=== PATIENT | female | born 1970 | race Caucasian/White ===

== ENCOUNTER 2018-04-14 06:49 | Day surgery (SDC) | payer BC ==
[~2018-04-14] VITALS: Ht 167.6 cm; Wt 82.6 kg
[~2018-04-14 06:49] MED LIST: BACTRIM DS1 TAB PO; CIPRODEX1 ML AU; CIPROFLOXACN500 MG PO; DIFLUCAN150 MG PO; EQ IBUPROFEN200 M1 PO; FERR SULFATE325 MG PO; FIORICET PO; KENALOG15 GM/TUBE EX; LIDOCAINE5 % EX; METROGEL VAG0.75 % VA; NAPROXEN500 MG PO; NIACIN500 MG PO; NYSTATIN100000 M3 TOP; ONDANSETRON4 MG OR; OXYBUTYNIN5 MG PO; PAXIL20 MG OR; PHENERGAN25 MG/TAB PO; PRAVASTATIN20 MG PO; PROAIR HFA IN; ROCEPHIN 1 GM1 GM IM; SERTRALINE100 MG PO; ZOFRAN ODT4 MG PO; ZOLOFT100 MG PO; ZPAK PO
[2018-04-14 14:31] VITALS: BP 110/73
== END 2018-04-14 10:05 | disposition home or self-care (01) | DRG 552 ==
LOC: ORM 06:49
PROVIDERS: ATTEND Anesthesiology Pain Medicine
PROC: 3E0T3BZ Introduction of Anesthetic Agent into Peripheral Nerves and Plexi, Percutaneous Approach (ICD-10-PCS; principal; 2018-04-14)
PROC: 3E0T33Z Introduction of Anti-inflammatory into Peripheral Nerves and Plexi, Percutaneous Approach (ICD-10-PCS; 2018-04-14)
PROC: BR161ZZ Fluoroscopy of Lumbar Facet Joint(s) using Low Osmolar Contrast (ICD-10-PCS; 2018-04-14)
DX: M54.5 Low back pain (principal); M12.9 Arthropathy, unspecified; M41.26 Other idiopathic scoliosis, lumbar region

== ENCOUNTER 2018-07-07 05:18 | Day surgery (SDC) | payer BC ==
[2018-07-07 09:02] VITALS: BP 136/88
== END 2018-07-07 08:10 | disposition home or self-care (01) | DRG 552 ==
LOC: ORM 05:18
PROVIDERS: ATTEND Anesthesiology Pain Medicine
PROC: 3E0T3BZ Introduction of Anesthetic Agent into Peripheral Nerves and Plexi, Percutaneous Approach (ICD-10-PCS; principal; 2018-07-07)
PROC: 3E0T33Z Introduction of Anti-inflammatory into Peripheral Nerves and Plexi, Percutaneous Approach (ICD-10-PCS; 2018-07-07)
PROC: BR161ZZ Fluoroscopy of Lumbar Facet Joint(s) using Low Osmolar Contrast (ICD-10-PCS; 2018-07-07)
DX: M54.5 Low back pain (principal); M12.9 Arthropathy, unspecified

== ENCOUNTER 2018-07-28 06:27 | Day surgery (SDC) | payer BC ==
[~2018-07-28] VITALS: Ht 167.6 cm; Wt 85.3 kg
[2018-07-28 09:53] VITALS: BP 120/79
== END 2018-07-28 09:26 | disposition home or self-care (01) | DRG 552 ==
LOC: ORM 06:27
PROVIDERS: ATTEND Anesthesiology Pain Medicine
PROC: 015B3ZZ Destruction of Lumbar Nerve, Percutaneous Approach (ICD-10-PCS; principal; 2018-07-28)
DX: M54.5 Low back pain (principal); M12.9 Arthropathy, unspecified

== ENCOUNTER 2018-09-10 19:08 | Emergency (ER) | payer BC ==
[~2018-09-10] VITALS: Ht 167.6 cm; Wt 79.2 kg
[2018-09-10 20:23] LABS: HEMATOCRIT 37.9 % (37.0-47.0); HEMOGLOBIN 12.6 g/dl (12.0-16.0); IMMATURE GRANULOCYTES 0.3 % (0.0-5.0); MEAN CELL VOLUME 92.4 fL CALC (80.0-100.0); MEAN CORPUSCULAR HGB 30.7 pG CALC (26.0-32.0); MEAN CORPUSCULAR HGB CONC 33.2 g/L CALC (32.0-36.0); NEUT# 5.9 thou/uL (2.00-7.15); RED BLOOD COUNT 4.1 mill/uL (4.20-5.60); RED CELL DISTRI WIDTH 13.9 % (11.5-15.5)
[2018-09-10 20:29] LABS: ALBUMIN 4.2 g/dL (3.2-5.0); ALKALINE PHOSPHATASE 68 u/l (38-126); ANION GAP 15 (6-22 (CALC)); BILIRUBIN, TOTAL 0.5 mg/dL (0.0-1.4); BUN 10 mg/dL (7-17); BUN/CREATININE RATIO 12 (12-20 (CALC)); CARBON DIOXIDE 24 mmol/l (22-30); CHLORIDE 103 mmol/l (95-108); CREATININE 0.8 mg/dL (0.5-1.0); GFR > 60 ML/MIN (>=60 (CALC)); GFR FOR AFR.AMER. > 60 ML/MIN (>=60 (CALC)); LIPASE 194 u/l (23-300); POTASSIUM 3.9 mmol/l (3.5-5.1); SGOT/AST 23 u/l (14-36); SODIUM 138 mmol/l (137-146); TOTAL PROTEIN 7.1 g/dL (6.3-8.2)
[2018-09-10 20:43] LABS: URINE BILIRUBIN - DIPSTICK NEGATIVE (NEGATIVE); URINE BLOOD DIPSTICK LARGE (NEGATIVE); URINE COLOR YELLOW; URINE GLUCOSE - DIPSTICK NEGATIVE (NEGATIVE); URINE KETONE NEGATIVE (NEGATIVE); URINE NITRITE - DIPSTICK NEGATIVE (Negative); URINE PH 6.5 (4.5-8.0); URINE PROTEIN - DIPSTICK NEGATIVE (NEG-TRACE); URINE SPECIFIC GRAVITY <=1.005; URINE UROBILINOGEN - DIPSTICK 0.2 E.U./dL (0.2)
[2018-09-10 21:00] LABS: URINE LEUK ESTERASE MODERATE (NEGATIVE)
[2018-09-10 21:13] LABS: URINE BACTERIA RARE hpf; URINE RBC TNTC RBC/hpf (0-5); URINE SQUAMOUS EPITHELIAL CELL FEW EPI/hpf (0-FEW); URINE WBC 20-50 WBC/hpf (0-5)
[2018-09-10] MEDS ORDERED: PYRIDIUM200 MG PO (21:19)
[2018-09-10] MEDS ORDERED: CIPROFLOXACN500 MG PO (21:19)
[2018-09-11] MEDS ORDERED: PERCOCET 5/321 COMBO PO (00:03)
[2018-09-11 00:24] VITALS: BP 118/64
== END 2018-09-11 00:23 | disposition home or self-care (01) | DRG 690 ==
LOC: ED 19:08
DX: N39.0 Urinary tract infection, site not specified (principal); N13.30 Unspecified hydronephrosis; R10.9 Unspecified abdominal pain; R31.9 Hematuria, unspecified; R33.9 Retention of urine, unspecified; B96.20 Unspecified Escherichia coli [E. coli] as the cause of diseases classified elsewhere
CPT/HCPCS: J1956; Q9967

== ENCOUNTER 2022-03-19 19:38 | Emergency (ER) | payer OTHER ==
[2022-03-19] VITALS (7 sets, daily range): BP systolic 114–136; BP diastolic 66–86
[~2022-03-19] VITALS: Ht 167.6 cm; Wt 85.0 kg
[~2022-03-19 19:38] MED LIST changes: +PERCOCET 5/321 COMBO PO; +PYRIDIUM200 MG PO
[2022-03-19 20:17] LABS: HEMATOCRIT 40.4 % (37.0-47.0); HEMOGLOBIN 13.2 g/dl (12.0-16.0); IMMATURE GRANULOCYTES 0.3 % (0.0-5.0); MEAN CORPUSCULAR HGB 29.7 pG CALC (26.0-32.0); MEAN CORPUSCULAR HGB CONC 32.7 g/dL CAL (32.0-36.0); NEUT# 3.87 thou/uL (2.00-7.15); RED BLOOD COUNT 4.44 mill/uL (4.20-5.60); RED CELL DISTRI WIDTH 14.1 % (11.5-15.5)
[2022-03-19 20:30] LABS: ALBUMIN 4.3 g/dL (3.2-5.0); ALKALINE PHOSPHATASE 94 u/l (38-126); ANION GAP 13 (6-22 (CALC)); BILIRUBIN, TOTAL 0.4 mg/dL (0.0-1.4); BUN 11 mg/dL (7-17); BUN/CREATININE RATIO 10 (12-20 (CALC)); CARBON DIOXIDE 23 mmol/l (22-30); CHLORIDE 108 mmol/l (95-108); CREATININE 1.1 mg/dL (0.5-1.0); GFR FOR AFR.AMER. > 60 ML/MIN (>=60 (CALC)); GFR OTHER RACES 52 ML/MIN (>=60 (CALC)); LIPASE 300 u/l (23-300); POTASSIUM 3.9 mmol/l (3.5-5.1); SGOT/AST 25 u/l (14-36); SODIUM 140 mmol/l (137-146); TOTAL PROTEIN 7.7 g/dL (6.3-8.2)
[2022-03-19 20:31] LABS: ACT PARTIAL THROMBO TIME 24.5 SECONDS (20.0-32.5); PROTHROMBIN TIME 10.6 SECONDS (9.0-12.5)
[2022-03-19] MEDS ORDERED: HYDROCO/APAP1 TA9 PO (22:54)
[2022-03-19] MEDS ORDERED: ZOFRAN4 MG/TAB PO (22:54)
== END 2022-03-19 23:55 | disposition home or self-care (01) | DRG 605 ==
LOC: ED 19:38
DX: S70.02XA Contusion of left hip, initial encounter (principal); S70.01XA Contusion of right hip, initial encounter; S20.212A Contusion of left front wall of thorax, initial encounter; S83.92XA Sprain of unspecified site of left knee, initial encounter; R11.2 Nausea with vomiting, unspecified; R51.9 Headache, unspecified; W01.0XXA Fall on same level from slipping, tripping and stumbling without subsequent striking against object, initial encounter; Y92.511 Restaurant or cafe as the place of occurrence of the external cause; Y99.0 Civilian activity done for income or pay
CPT/HCPCS: Q9967

== ENCOUNTER 2024-12-12 08:26 | Observation (INO) | payer OTHER ==
[2024-12-12] VITALS (16 sets, daily range): BP systolic 106–147; BP diastolic 50–125
[~2024-12-12] VITALS: Ht 167.6 cm; Wt 83.0 kg
[~2024-12-12 08:26] MED LIST changes: +HYDROCO/APAP1 TA9 PO; +ZOFRAN4 MG/TAB PO
[2024-12-12] MEDS ORDERED: methylPREDNISolone SODIUM SUCC 125 MG/2 ML SDV IV ONE (09:00)
[2024-12-12] MEDS ORDERED: IPRATROPIUM-Albuterol 0.5MG-2.5MG/3 ML NEB ONE (09:00)
[2024-12-12 09:02] LABS: BASO% 0.6 % (0-3); EOS% 3.5 % (0-8); HEMATOCRIT 36.9 % (37.0-47.0); HEMOGLOBIN 11.8 g/dl (12.0-16.0); IMMATURE GRANULOCYTES 0.3 % (0.0-5.0); MEAN CELL VOLUME 87.4 fL CALC (80.0-100.0); MONO% 4.9 % (2-13); NEUT# 3.18 thou/uL (2.00-7.15); NEUT% 48.7 % (42-76); RED BLOOD COUNT 4.22 mill/uL (4.20-5.60); RED CELL DISTRI WIDTH 15.2 % (11.5-15.5)
[2024-12-12 09:16] LABS: BILIRUBIN, TOTAL 0.5 mg/dL (0.02-1.3); CREATININE 0.8 mg/dL (0.5-1.0); POTASSIUM 4.4 mmol/l (3.5-5.1); TOTAL PROTEIN 6.9 g/dL (6.3-8.2)
[2024-12-12] MEDS ORDERED: ALBUTEROL SULFATE 2.5 MG VIAL IN ONE ×3 (09:45→10:25)
[2024-12-12] MEDS ORDERED: Acetaminophen 300 MG/Codeine 30 MG/COMBO PO ONE (09:45)
[2024-12-12] MEDS ORDERED: MAGNESIUM SULFATE HEPTAHYDRATE 50 ML IV ONE (10:25)
[2024-12-12] MEDS ORDERED: ASPIRIN 81 MG/TAB ONE (10:51)
[2024-12-12] MEDS ORDERED: MORPHINE SULFATE 4 MG/ML VIAL IV ONE (11:00)
[2024-12-12] MEDS ORDERED: ONDANSETRON HCl 4 MG/2 ML SDV IV ONE (11:50)
[2024-12-12] MEDS ORDERED: Zaleplon 5 MG/CAP PO PRN (14:05)
[2024-12-12] MEDS ORDERED: MAGNESIUM HYDROXIDE 30 ML UDC PO PRN (14:05)
[2024-12-12] MEDS ORDERED: ACETAMINOPHEN 325 MG/TAB PO PRN (14:05)
[2024-12-12] MEDS ORDERED: IPRATROPIUM-Albuterol 0.5MG-2.5MG/3 ML NEB SCH (15:00)
[2024-12-12] MEDS ORDERED: AZITHROMYCIN 500 MG in SODIUM CHLORIDE 0.9% 250 ML IV SCH (18:00)
[2024-12-12] MEDS ORDERED: ENOXAPARIN SODIUM 40 MG/0.4 ML SYR SC SCH (21:00)
[2024-12-12] MEDS ORDERED: methylPREDNISolone Sod Succ 40 MG/ML SDV IV SCH (22:00)
[2024-12-13] VITALS (7 sets, daily range): BP systolic 113–147; BP diastolic 61–77
[2024-12-13 06:25] LABS: CHOLESTEROL HDL RATIO 8.9 (<4.4 (CALC)); MAGNESIUM 2.5 mg/dL (1.6-2.3)
[2024-12-13] MEDS ORDERED: BUTALBITAL-APAP-CAFFEINE 50-325-40 TAB PO PRN (09:55)
[2024-12-13] MEDS ORDERED: IPRATROPIUM-Albuterol 0.5MG-2.5MG/3 ML NEB PRN (15:44)
[2024-12-13] MEDS ORDERED: guaiFENesin-CODEINE 200-20 MG/10 ML UDC PO PRN (15:45)
[2024-12-13] MEDS ORDERED: DEXTROSE 250 ML IV PRN (15:55)
[2024-12-13] MEDS ORDERED: INSULIN LISPRO 100 UNITS/ML ML SC SCH (17:00)
[2024-12-13] MEDS ORDERED: ASPIRIN EC 81 MG/TAB PO SCH (17:00)
[2024-12-13] MEDS ORDERED: metFORMIN HYDROCHLORIDE 500 MG/TAB PO SCH (17:30)
[2024-12-13] MEDS ORDERED: ATORVASTATIN CALCIUM 40 MG/TAB PO SCH (21:00)
[2024-12-14 00:21] VITALS: BP 117/64
[2024-12-14 05:09] VITALS: BP 119/75
[2024-12-14 05:27] LABS: BASO% 0.1 % (0-3); HEMATOCRIT 34.9 % (37.0-47.0); HEMOGLOBIN 11.2 g/dl (12.0-16.0); IMMATURE GRANULOCYTES 0.7 % (0.0-5.0); LYMPH% 9.9 % (15-41); MEAN CELL VOLUME 88.1 fL CALC (80.0-100.0); MEAN CORPUSCULAR HGB 28.3 pG CALC (26.0-32.0); MEAN CORPUSCULAR HGB CONC 32.1 g/dL CAL (32.0-36.0); MONO% 1.6 % (2-13); NEUT# 16.49 thou/uL (2.00-7.15); NEUT% 87.7 % (42-76); RED BLOOD COUNT 3.96 mill/uL (4.20-5.60); RED CELL DISTRI WIDTH 15.9 % (11.5-15.5)
[2024-12-14 05:35] LABS: ALBUMIN 3.8 g/dL (3.2-5.0); BILIRUBIN, TOTAL 0.3 mg/dL (0.02-1.3); CREATININE 0.9 mg/dL (0.5-1.0); MAGNESIUM 2.5 mg/dL (1.6-2.3); TOTAL PROTEIN 6.5 g/dL (6.3-8.2)
[2024-12-14 05:57] VITALS: BP 111/70
[2024-12-14 09:37] VITALS: BP 137/77
[2024-12-14] MEDS ORDERED: ATORVASTATIN CA40 MG PO (13:52)
[2024-12-14] MEDS ORDERED: ADLT ASA LOW81 MG PO (13:52)
[2024-12-14] MEDS ORDERED: DOXYCYCLINE100 MG PO (13:53)
[2024-12-14] MEDS ORDERED: METFORMIN HCL500 M1 PO (13:53)
== END 2024-12-14 15:57 | disposition home or self-care (01) | DRG 203 ==
LOC: ED 08:26 → ED-I 13:03 → ED 14:06 → MS2 14:07
PROVIDERS: Family Medicine; Nurse Practitioner Family; ADMIT Internal Medicine; ATTEND Internal Medicine
DX: J20.9 Acute bronchitis, unspecified (principal); R07.9 Chest pain, unspecified; E11.9 Type 2 diabetes mellitus without complications; E78.2 Mixed hyperlipidemia; J45.909 Unspecified asthma, uncomplicated; Z20.822 Contact with and (suspected) exposure to COVID-19
CPT/HCPCS: J0456; J0696; J1650; J1815; J2405; J3475; Q9967